=== PATIENT | female | born 2000 | race Caucasian/White ===

== ENCOUNTER → 2025-06-03 07:03 | Outpatient (CLI) | payer OTHER, SELFPAY ==
--- NOTE | 2025-06-03 07:05 | DI.US.S_ITS ---
PROCEDURE: US OB >= 14 WEEKS FETUS INDICATIONS: Anatomy US OUTSIDE/PRIOR DATING DATA: First dating scan (date and location): 06/03/2025. Estimated date of delivery (AMY) from today's dating scan 08/23/2025 Working AMY is 08/26/2025 TECHNIQUE: Real-time scanning was performed of the fetus, with image documentation and biometric measurements. Endovaginal scanning: No COMPARISON: None. FINDINGS: General: A single living intrauterine gestation is present. Presentation: Vertex. Placenta: Placental position is posterior right lateral , without previa. Amniotic fluid index: 12.5 cm, normal range is 5-24 cm. Single deepest vertical pocket is 4.0 cm. heart rate: 136 beats per minute. Maternal cervical canal: 3.1 cm long. Normal lower limit is 2.5 cm. biometrics: Biparietal diameter: 29 weeks 5 days Head circumference: 28 weeks 6 days Abdominal circumference: 27 weeks 2 days Femur length: 28 weeks Clinically estimated gestational age: 28 weeks Composite gestational age from present scan: 28 weeks 3 days Estimated weight and percentile: 1134 g; 31st percentile based on working AMY. Anatomic survey: Neuro: Ventricles are non-dilated at less than 10 mm. Cisterna magna is normal at 3-11 mm. Cerebellum is normal in size and morphology. Nuchal skin fold: Normal at less than 6 mm between 14-21 weeks gestational age. Face: Nose and lips, facial profile are normal. Spine: No evidence for spina bifida. Heart: 4-chambered heart is present, with normal ventricular outflow tracts. Diaphragm: Diaphragm is intact. Stomach: Left-sided stomach is present. Kidneys: No hydronephrosis. Normal is less than 5 mm in 2nd trimester, less than 7 mm in 3rd trimester. Cord: 3-vessel cord has orthotopic insertion. Bladder: Normal in size. Extremities: All 4 extremities identified. IMPRESSION: 1. Single living IUP redemonstrated and interval growth is within normal limits based on the provided working AMY of 08/26/2025. 2. face suboptimally visualized; otherwise normal anatomic survey. Short-term follow-up recommended. We strive to produce accurate, complete, and clear reports of imaging services. To assist us in improving patient care, this report was composed using standard report templates and voice recognition software. Therefore, it may contain abnormal punctuation, insertions and/or omissions. Occasional wrong-word or sound-alike substitutions may occur. Though we review the report and make efforts to correct it, we do recommend that the report be read carefully in proper context to recognize any text inaccuracies. Dictated by: James MOSLEY Interpreted: Jennifer Heath MD on 06/03/2025 at 9:40 Transcribed by: MAT on 06/03/2025 at 9:46 Approved by: Jennifer Heath M.D. on 06/04/2025 at 0:50
== END ==
LOC: US 07:04
PROVIDERS: PCP Family Medicine; Referring Provider Family Medicine; Visit Provider Family Medicine
DX: Z34.83 Encounter for supervision of other normal pregnancy, third trimester (principal); Z3A.28 28 weeks gestation of pregnancy
CPT/HCPCS: 76811

== ENCOUNTER → 2025-06-14 08:24 | Outpatient (CLI) | payer OTHER, SELFPAY ==
--- NOTE | 2025-06-14 08:26 | DI.US.S_ITS ---
PROCEDURE: US OB FOLLOW UP INDICATIONS: PROFILE, FACE, AND CRANIAL ANATOMY NOT SEEN OUTSIDE/PRIOR DATING DATA: The calculations are made using the working AMY of 08/26/2025 TECHNIQUE: Real-time scanning was performed of the fetus, with image documentation. Endovaginal scanning: Not performed COMPARISON: 06/03/2025. FINDINGS: A single living intrauterine gestation is present. Presentation: Vertex Placenta: Placental position is right posterior, without previa. Amniotic fluid index: 15.9 cm, normal range is 5-24 cm. Single deepest vertical pocket is 5.2 cm. heart rate: 141 beats per minute. Maternal cervical canal: Closed and measures 3.0 cm long. Normal lower limit is 2.5 cm. Estimated gestational age from initial scan: 29 weeks, 4 days. Lateral ventricles and cisterna magna are visualized on the current study. Slight narrowing of the lateral ventricles are noted measures up to 3.9 mm and is of questionable significance. Enlarged cerebellum measures 39.8 cm. facial profile is seen and is within normal limits. IMPRESSION: 1. Single live intrauterine gestation with fetus in vertex presentation. heart rate is 141 beats per minute. Normal DES at 15.9 cm. Cervix is closed and measures 3 cm in length. 2. facial profile is visualized on the current study and is within normal limits. 3. Lateral ventricles are visualized and appears narrow on the current study as above suggest clinical and imaging follow-up after . Prominent size of cerebellum and is a nonspecific finding. This can also be followed up after . Dictated by: Ricky Shah M.D. on 06/14/2025 at 14:32 Approved by: Ricky Shah M.D. on 06/14/2025 at 14:36
== END ==
LOC: US 08:25
PROVIDERS: PCP Family Medicine; Referring Provider Family Medicine; Visit Provider Family Medicine
DX: Z34.83 Encounter for supervision of other normal pregnancy, third trimester (principal); Z3A.29 29 weeks gestation of pregnancy
CPT/HCPCS: 76816